=== PATIENT | female | born 1990 | race Asian ===

== ENCOUNTER 2024-10-28 00:56 | Inpatient (IN) | payer BC, SELFPAY ==
[2024-10-28] VITALS (47 sets, daily range): BP systolic 79–120; BP diastolic 44–93; PULSE 79–132; RESP 13–28; TEMP 36.4–36.8; O2SAT 90–100; BMI 29.7
--- NOTE | ~2024-10-28 | XR_ITS ---
XR chest 1V portable 10/28/2024 03:50 Indication: Overdose Procedure: AP portable chest Comparison: No prior studies for comparison. Findings: Shallow inspiration with crowding of the pulmonary vessels. There are subtle asymmetric opacification of the left lung which may relate to hypoventilatory change or airspace disease. No pleural effusion or pneumothorax. Impression: 1: Subtle opacification of left thorax which may reflect hypoventilatory change versus airspace disease which could represent pneumonia. Recommend follow-up upright PA and lateral views of the chest when the patient's condition permits. Reviewed, dictated and finalized at location O. Impression: 1: Subtle opacification of left thorax which may reflect hypoventilatory change versus airspace disease which could represent pneumonia. Recommend follow-up u pright PA and lateral views of the chest when the patient's condition permits.
--- NOTE | ~2024-10-28 | US_ITS ---
US abdomen limited INDICATION: Transaminitis PROCEDURE: Realtime right upper abdominal ultrasound. COMPARISON: No prior studies for comparison. FINDINGS: The pancreas is normal without focal mass or pancreatic ductal dilation. Liver echotexture is increased, consistent with fatty infiltration. There is normal directional flow in the portal vein. The gallbladder is normal without stones, gallbladder wall thickening or pericholecystic fluid. Common bile duct measures 4 mm. No sonographic Lerma's sign. IMPRESSION: 1: Fatty infiltration of the liver. Reviewed, dictated and finalized at location O.
--- NOTE | 2024-10-28 00:59 | ECG_ITS ---
Test Date: 2024-10-28 01:14:25 Measurements Intervals [place] Rate: 127 P: 35 [place]: 143 QRS: -19 QRSD: 82 T: 6 QT: 315 QTc: 458 Interpretive Statements SINUS TACHYCARDIA INCOMPLETE RIGHT BUNDLE BRANCH BLOCK BORDERLINE ST-T WAVE ABNORMALITY- ANT/INF LEADS BASELINE WANDER- V5 ABNORMAL ECG No previous ECG available for comparison Electronically Signed On 10-28-2024 07:36:27 CDT by Colt Mckoy D.O.
[2024-10-28 01:14] LABS: Hematocrit 41.3 % (37.0-47.0); Hemoglobin 13.5 g/dL (12.0-15.0); Immature Granulocyte Percent A 1.2 % (0-0.5); Lymphocytes Absolute Auto 3.18 K/mm3 (0.9-3.2); Mean Corpuscular HGB Conc 32.7 g/dl (32-36); Mean Corpuscular Hemoglobin 30.0 pg (26-34); Mean Corpuscular Volume 91.8 fl (80-100); Nucleated Red Blood Cells Absolute Auto 0.000 K/mm3 (0.0-0.012); Nucleated Red Blood Cells Perc 0.0 % (0.0-0.2); Platelet Count Result 236 k/mm3 (150-375); Red Blood Count 4.50 M/mm3 (4.2-5.4); White Blood Count 9.0 K/mm3 (4.5-10.0)
--- NOTE | 2024-10-28 01:17 | PC.NURSE ---
This RN spoke with poison control. Normal overdose workup suggested and observation, unclear how long of an observation period d/t peak time being 30 minutes - 6 hours, half-life 8-31 hours. The recommend against reversing with flumazenil d/t increased risk for seizures. Airway support may be needed. If UDS positive for opiates, can give narcan. Case #[id number]
[2024-10-28 01:27] LABS: Magnesium 2.3 mg/dL (1.6-2.3)
[2024-10-28 01:28] LABS: Alanine Aminotransferase 297 U/L (6-35); Albumin Level 4.7 g/dL (3.5-5.1); Alkaline Phosphatase 70 U/L (38-126); Anion Gap 13 mmol/L (4-12); Aspartate Amino Transferase 194 U/L (14-36); Bilirubin,Total 0.4 mg/dL (0.2-1.3); Blood Urea Nitrogen 12 mg/dL (7-17); Calcium 9.0 mg/dL (8.4-10.2); Carbon Dioxide 19 mmol/L (22-30); Chloride 111 mmol/L (98-107); Estimated CRCL calculation 104 ml/min; Estimated Glomerular Filt Rate > 60; Glucose 105 mg/dL (65-110); Potassium 4.6 mmol/L (3.4-5.0); Sodium 143 mmol/L (137-145); Total Protein 8.1 g/dL (6.3-8.2)
[2024-10-28 01:29] LABS: Acetaminophen < 10 ug/mL (10-30); Salicylate < 1.0 mg/dL (2-20)
[2024-10-28 01:31] LABS: BEDSIDEPREGUCG Negative (Negative)
--- NOTE | 2024-10-28 01:33 | ED.GENADULT ---
HPI - General Adult General Chief complaint: Overdose Stated complaint: overdose Time Seen by Provider: 10/28/24 01:02 History of Present Illness HPI narrative: Patient is a 34-year-old female who presents to the emergency department this evening status post an overdose. This occurred approximately 1.5 hours prior to arrival. Mother who is present in the room with the patient states that the patient took 15 Etizola pills, 0.5 mg which she takes for depression/anxiety. Patient also drank too double vodka as this evening. She is currently alert oriented x2 and normally she is A&O x4. Family members deny any past medical history of any suicidal ideations or suicide attempt and deny any previous self-harm episodes. Patient herself does appear to be drowsy, however, when asked why she took that many pills and if she was attempting to harm herself she is denying any self harm intent. Related Data Allergies Allergy/AdvReac Type Severity Reaction Status Date / Time No Known Allergies Allergy Verified 10/28/24 02:29 Review of Systems Review of Systems: Unable to obtain full review of systems secondary to patient's current altered mental status. Exam Narrative: General: Afebrile, in no acute distress, altered/drowsy. HEENT: PERRL dilated, no rhinorrhea, no post nasal drip, oropharynx clear. Neck: Trachea midline, no JVD, no lymphadenopathy. Cardiovascular: Regular rate and rhythm, no murmurs, rubs or gallops, no peripheral edema. Respiratory: Clear to auscultation bilaterally, no tachypnea, no wheezing, no rhonchi, no rubs, no respiratory distress. Abdomen: Soft, nontender, nondistended, no rebound, no guarding, no peritoneal signs. Musculoskeletal: No joint swelling or deformity, normal muscle tone. Skin: No rashes or petechia, no signs of infection. Psychiatric: Alert and oriented to person and place, appears to be under the influence of drug/alcohol, otherwise normal behavior and judgment for situation. Neurological: Alert and oriented to person, place. Follows simple commands. Moving all extremities spontaneously. No focal deficits appreciated within the limitations of the examination secondary to patient's somnolence. Course Vital Signs Vital signs: Vital Signs Temperature 97.8 F 10/28/24 01:01 Pulse Rate 126 H 10/28/24 01:01 Respiratory Rate 14 10/28/24 01:01 Blood Pressure 114/73 10/28/24 01:01 Pulse Oximetry 94 10/28/24 01:01 Oxygen Delivery Room Air 10/28/24 01:01 Temperature 97.8 F 10/28/24 01:01 Pulse Rate 106 H 10/28/24 03:51 Respiratory Rate 14 10/28/24 03:51 Blood Pressure 96/57 L 10/28/24 03:51 Pulse Oximetry 95 10/28/24 03:51 Oxygen Delivery Nasal Cannula 10/28/24 02:12 Oxygen Flow Rate 2 10/28/24 02:12 Medical Decision Making MDM Narrative Medical decision making narrative: The patient was evaluated by myself in the emergency department. History is obtained from EMS report and family members present at bedside and physical exam was performed. External medical records were reviewed at this time. IV was established and pertinent tests were ordered. Patient was administered 2 L IV fluid bolus with normal saline. Patient's O2 did drop while she is sleeping and she was placed on 2 L nasal cannula with improvement of her oxygenation currently ranging between 95-100 degrees F. patient was placed on suicide precautions/elopement precautions at this time. EKG was obtained which revealed sinus tachycardia rate of 127 beats per minute with mild QT prolongation, no evidence of acute ischemia. EKG was independently interpreted by me and is currently pending official cardiology read. Laboratory results obtained revealing transaminitis with an AST of 194 and an ALT of 297, blood alcohol level 270, otherwise unremarkable. Urinalysis unremarkable. UDS unremarkable. Imaging studies obtained included a CXR which was independently interpreted by me revealing no acute process. Chest x-ray currently pending official radiology read. Differential diagnosis considerations include overdose, intentional versus accidental, polysubstance abuse, alcohol abuse. Comorbidities impacting this visit include history of anxiety and depression. I have evaluated and discussed social determinants of health with the patient that could potentially impact subsequent diagnosis and treatment plans. On repeat assessment of the patient, reevaluation revealed that the patient is doing well and is in no acute distress. Patient symptoms have improved since she arrived to our emergency department. Repeat vital signs were all reviewed and noted to be stable. At this time, case was discussed with poison control who recommended symptomatic management, peak of this medication is 6 hours with the half-life of 31 hours. Case was discussed with the on-call metal burrer Dr. Warner at [phone] who recommended step-down admission however patient will need an ICU bed as she will need 1 on 1 sitter for suicidal ideations. Critical care time of 55 minutes, exclusive of separately performed procedures, necessary for treating or preventing eminent or life-threatening deterioration of patient's condition of polysubstance overdose, focused on patient care provided personally by me and time spent during initial evaluation, physical examination, ordering and performing treatments and interventions, ordering and reviewing laboratory studies, ordering and reviewing radiographic studies, re-evaluation of the patient's condition, evaluation of the patient's response to treatment, and discussion of patient case with admitting provider and consultants. Vital Signs Vital Signs: Vital Signs Temperature 97.8 F 10/28/24 01:01 Pulse Rate 126 H 10/28/24 01:01 Respiratory Rate 14 10/28/24 01:01 Blood Pressure 114/73 10/28/24 01:01 Pulse Oximetry 94 10/28/24 01:01 Oxygen Delivery Room Air 10/28/24 01:01 Temperature 97.8 F 10/28/24 01:01 Pulse Rate 106 H 10/28/24 03:51 Respiratory Rate 14 10/28/24 03:51 Blood Pressure 96/57 L 10/28/24 03:51 Pulse Oximetry 95 10/28/24 03:51 Oxygen Delivery Nasal Cannula 10/28/24 02:12 Oxygen Flow Rate 2 10/28/24 02:12 Lab Data 10/28/24 01:06 10/28/24 01:06 Labs: Lab Results 10/28/24 10/28/24 10/28/24 Range/Units 01:06 01:29 01:31 WBC 9.0 (4.5-10.0) K/mm3 RBC 4.50 (4.2-5.4) M/mm3 Hgb 13.5 (12.0-15.0) g/dL Hct 41.3 (37.0-47.0) % MCV 91.8 (80-100) fl MCH 30.0 (26-34) pg MCHC 32.7 (32-36) g/dl RDW 13.0 (11.5-14.5) % Plt Count 236 (150-375) k/mm3 MPV 10.1 (7.4-10.4) fl Immature Gran % (Auto) 1.2 H (0-0.5) % Neut % (Auto) 43.1 L (45.5-73.1) % Lymph % (Auto) 35.4 (18.3-44.2) % [place] % (Auto) 6.2 (2.6-8.5) % Eos % (Auto) 12.7 H (0-4.4) % Baso % (Auto) 1.4 H (0.2-1.2) % Lymph # (Auto) 3.18 (0.9-3.2) K/mm3 [place] # (Auto) 0.6 (0.1-0.6) K/mm3 Eos # (Auto) 1.1 H (0-0.3) K/mm3 Baso # (Auto) 0.1 (0.0-0.1) K/mm3 Abs Immat Gran (auto) 0.11 H (0.00-0.031) K/mm3 Absolute Neuts (auto) 3.9 (1.3-6.7) K/mm3 Absolute Nucleated RBC 0.000 (0.0-0.012) K/mm3 Nucleated RBC % 0.0 (0.0-0.2) % Sodium 143 (137-145) mmol/L Potassium 4.6 (3.4-5.0) mmol/L Chloride 111 H (98-107) mmol/L Carbon Dioxide 19 L (22-30) mmol/L Anion Gap 13 H (4-12) mmol/L BUN 12 (7-17) mg/dL Creatinine 0.62 L (0.7-1.0) mg/dL Estim Creat Clear Calc 104 ml/min Estimated GFR > 60 (59 - ) Glucose 105 (65-110) mg/dL Calcium 9.0 (8.4-10.2) mg/dL Magnesium 2.3 (1.6-2.3) mg/dL Total Bilirubin 0.4 (0.2-1.3) mg/dL AST 194 H (14-36) U/L ALT 297 H (6-35) U/L Alkaline Phosphatase 70 (38-126) U/L Total Protein 8.1 (6.3-8.2) g/dL Albumin 4.7 (3.5-5.1) g/dL TSH 0.937 (0.465-4.680) uIU/mL Urine Color Yellow (Yellow) Urine Appearance Clear (Clear) Urine pH 6.0 (5.0-9.0) Ur Specific [place] 1.011 (1.001-1.035) Urine Protein Negative (Negative) mg/dL Urine Glucose (UA) Negative (Negative) mg/dL Urine Ketones Negative (Negative) mg/dL Ur Blood (Man) Negative (Negative) Urine Nitrate Negative (Negative) Urine Bilirubin Negative (Negative) Urine Urobilinogen 0.2 (<2.0) mg/dL Leukocyte Esterase Rfl Negative (Negative) ZION/UL POC Urine HCG, Qual Negative (Negative) Salicylates < 1.0 L (2-20) mg/dL Urine Opiates Screen Negative (Negative) Urine Methadone Screen Negative (Negative) Acetaminophen < 10 L (10-30) ug/mL Ur Barbiturates Screen Negative (Negative) Ur Phencyclidine Scrn Negative (Negative) Ur Amphetamine Screen Negative (Negative) U Benzodiazepines Scrn Negative (Negative) Urine Cocaine Screen Negative (Negative) U Cannabinoids Screen Negative (Negative) Ethyl Alcohol 270 (<10) mg/dL SARS-CoV-2 RNA (RT-PCR) Negative (Negative) Critical Care Time Critical Care Time Critical Care Time: Yes Total Critical Care Time: 55 (Please refer to [facility] for attestation.) Discharge Plan Discharge Clinical Impression: Drug overdose, Alcohol intoxication Patient Disposition: Still a Patient Condition: Guarded Prognosis Patient Language: Tajik Time of Disposition: 03:46
[2024-10-28 01:40] LABS: Add Urine Microscopic? NO; Appearance Urine Clear (Clear); Glucose Urine UA Negative (Negative); Leukocyte Esterase Ur Negative LEU/UL (Negative); Nitrate Urine Negative (Negative); Specific Grav Ur 1.011 (1.001-1.035)
--- OUTSIDE RECORDS SUMMARY | 2024-10-28 01:46 | XMS_ITS | Patient Health Record ---
Author Organization [facility] [employer] Address [address] [facility] [address] [place] [address] Care Team Providers Care Spectroscopist Name Role Phone Marcia Singh Unavailable [phone] Reason For Referral No Information Medications Medication SIG (Take, Route, Frequency, Duration) Notes Start Date End Date Status COVID-19 Antibody Test Kit In Vitro *Reorder from [employer] for eRx and Interaction Alerts* 06/11/2020 Active Vraylar 1.5 mg Capsule Oral 06/11/2020 Active Social History Social History Additional Details Category Social Info Options Details Migrated Social History Migrated Social History Alcohol Intake: Heavy 06/11/2020,Tobacco Years: Current some days smoker 06/11/2020 Plan Of Treatment No Information Insurance Providers Payer Name Payer Address Payer Phone Subscriber Number Group Number Insured Name Patient Relationship to Insured Coverage Start Date Coverage End Date Medicaid-I l Medicaid [address] [address] [place] [address] [id number] ROLO ELDER Self - patient is the insured
[2024-10-28 01:49] LABS: SARS-CoV-2 RNA PCR Negative (Negative)
[2024-10-28] MEDS: SODIUM CHLORIDE 0.9% IV 1,000 ML 999 ML IV CONT ×2 (01:54→03:35)
[2024-10-28 01:58] LABS: Thyroid Stimulating Hormone 0.937 uIU/mL (0.465-4.680)
[2024-10-28 02:07] LABS: Cannabinoid Screen Urine Negative (Negative)
[2024-10-28] MEDS: SODIUM CHLORIDE 0.9% IV 1,000 ML 150 ML IV CONT (02:29)
--- NOTE | 2024-10-28 02:47 | PC.NURSE ---
Gianna from Poison center updated that the pt BP has decreased. Updated on all lab results. She recommended to continue supportive care with fluids and to add pessors if needed.
--- NOTE | 2024-10-28 03:57 | P.HP_ITS ---
H&P: HPI History of Present Illness Date/Time: 10/28/24 03:57 Chief Complaint: Overdose Narrative: This is a 34-year-old female patient with past medical history of anxiety and depression, alcohol abuse, who takes a medication called Etizola, which is a member of the Thieodiazepine family that is not purchased in the [place], but is similar in formulary to Benzodiazepines was brought to the ER last evening with complaints of an overdose. Patient's mother is at the bedside and serves as the primary source of information as patient is currently unable to provide meaningful information herself and her mother is believed to be a reliable source. According to mom Bessie took 15 of her Etizola tablets that are 0.5 mg each and did so approximately one and a half hours prior to arrival to the ER, approximately 10:00 p.m. on 10/27/2024. This medication is obtained without prescription in the country of [place] and is not available here in the [place]. Its main purpose is to help provide sleep and to help calm and patient's mother states that she keeps them at her home in case she has difficulty sleeping. Mom states that patient was at her significant other's house tonight and they did not expect her to come home until morning, however she received a phone call stating that she wanted to be picked up and brought home at approximately 9:30 p.m. last night. Mom stated that upon picking the patient up she could tell that she was obviously drunk as well as there may have been an argument between the patient and her significant other but she is uncertain what transpired. Upon arrival home mom notes that the patient ate a bowl of soup, sent down and conversed with company that was visiting and appeared to be okay and took herself to bed. Mom gives the history of 2 days ago patient was stating that she was having difficulty sleeping so she allowed her to take 1 of her Etizola medications that she keeps on hand for her own sleep aid, so she knew where the tablets were. Mom reportedly went to put the family dog in the patients room with her to sleep tonight and when she entered the room, she found pt on the floor, unconscious and the package of pills of Etizola laying next to her with 15 tablets missing. Mom states that the pt has never attempted suicide and states that approximately three years ago she was in rehab for substance abuse at which point she was diagnosed with a psychiatric disorder, but is unsure of what. She was supposed to continue taking Risperdal as outpt but notes she does not believe she has for at least 6 months, nor has she followed up with a psychiatrist. Upon arrival to the emergency room patient appeared lethargic, was alert and oriented x2 which is not at her baseline which is alert and oriented x4. It is very difficult to discern intent. Workup was performed in the emergency room upon arrival. Patient's vital signs noted to be stable with exception of being tachycardic in the 120s, and blood pressures systolic ranging 90s to low 100s over 40s to 90s. Patient hypoxic at times and is requiring supplemental oxygen at 2 L. EKG showing sinus tachycardia 127 beats per minute with a QTC of 458. CBC unremarkable, metabolic panel unremarkable, normal TSH and magnesium. Urinalysis negative for acute infection. COVID is negative and UDS unremarkable. Abnormal labs include findings of AST of 194, ALT of 297 and serum alcohol level of 270. Poison control was notified who states this medication peaks at 6:00 a.m. and has a half-life of 31 hours. Their recommendation is to provide symptom management. Chest x-ray as independently reviewed by emergency room provider negative for any acute cardiopulmonary abnormality. As we are unable to determine intent patient is going to be placed in ICU she will need 1 on 1 sitter at this time u ntil we are able to clarify intent with her normal level of alertness and degree of orientation. Emergency room provider did speak with dry transfer worker, Dr. Warner who will be consulted. Review of Systems Review of Systems: Unable to obtain ROS from pt as she is arousable to tactile stim, but does not answer any orientation questions for me, and instead drifts back off to sleep after arousal. [facility] Past Medical History Medical History (Updated 10/28/24 @ 04:30 by LUBNA Thompson) Transaminitis Substance abuse Depression Social History Social History (Updated 10/28/24 @ 04:49 by LUBNA Thompson) Smoking packs per day: 0.5 Smoking cigarettes per day: 10.0 Years smoked: 2 Smoking pack-years: 1.00 Smoking status: Former smoker Tobacco type: cigarettes Alcohol intake: current Alcohol use details: Daily Substance use: current Other substance usage details: Occasional Marijuana use Last use: Unknown Meds Home Medications and Allergies Allergies Allergy/AdvReac Type Severity Reaction Status Date / Time No Known Allergies Allergy Verified 10/28/24 02:29 Vital Signs Vital Signs - 24 hr 10/28/24 01:01 10/28/24 01:09 10/28/24 01:13 Temperature 97.8 F Pulse Rate 126 H 132 H Respiratory Rate 14 16 Blood Pressure 114/73 Pulse Oximetry 94 95 Oxygen Delivery Room Air Oxygen Flow Rate 10/28/24 01:16 10/28/24 01:16 10/28/24 01:22 Temperature Pulse Rate 129 H 124 H Respiratory Rate Blood Pressure 103/71 Pulse Oximetry 98 Oxygen Delivery Room Air Oxygen Flow Rate 10/28/24 01:23 10/28/24 01:32 10/28/24 01:42 Temperature Pulse Rate 121 H 122 H 127 H Respiratory Rate 28 H 16 Blood Pressure 97/69 L Pulse Oximetry 95 96 Oxygen Delivery Oxygen Flow Rate 10/28/24 01:43 10/28/24 01:45 10/28/24 01:47 Temperature Pulse Rate 126 H 122 H 121 H Respiratory Rate 26 H 20 22 H Blood Pressure 109/93 H 94/48 L Pulse Oximetry 96 96 95 Oxygen Delivery Oxygen Flow Rate 10/28/24 01:56 10/28/24 01:57 10/28/24 02:00 Temperature Pulse Rate 120 H 120 H 121 H Respiratory Rate 24 H 27 H Blood Pressure 100/68 Pulse Oximetry 91 94 92 Oxygen Delivery Oxygen Flow Rate 10/28/24 02:01 10/28/24 02:12 10/28/24 02:15 Temperature Pulse Rate 119 H 109 H Respiratory Rate 21 H 19 Blood Pressure 101/66 Pulse Oximetry 95 97 97 Oxygen Delivery Nasal Cannula Oxygen Flow Rate 2 10/28/24 02:16 10/28/24 02:30 10/28/24 02:31 Temperature Pulse Rate 109 H 110 H 111 H Respiratory Rate 18 19 20 Blood Pressure 88/55 L 79/51 L Pulse Oximetry 92 98 93 Oxygen Delivery Oxygen Flow Rate 10/28/24 02:33 10/28/24 02:45 10/28/24 02:46 Temperature Pulse Rate 110 H 113 H 111 H Respiratory Rate 20 21 H 20 Blood Pressure 84/72 L 97/45 L Pulse Oximetry 97 95 92 Oxygen Delivery Oxygen Flow Rate 10/28/24 03:00 10/28/24 03:01 10/28/24 03:15 Temperature Pulse Rate 113 H 112 H 112 H Respiratory Rate 22 H 19 21 H Blood Pressure 98/53 L Pulse Oximetry 95 90 95 Oxygen Delivery Oxygen Flow Rate 10/28/24 03:16 10/28/24 03:28 10/28/24 03:30 Temperature Pulse Rate 110 H 110 H 109 H Respiratory Rate 18 20 19 Blood Pressure 98/51 L 96/46 L Pulse Oximetry 91 97 97 Oxygen Delivery Oxygen Flow Rate 10/28/24 03:31 10/28/24 03:32 10/28/24 03:42 Temperature Pulse Rate 110 H 110 H 108 H Respiratory Rate 20 19 18 Blood Pressure 100/65 95/44 L Pulse Oximetry 97 97 97 Oxygen Delivery Oxygen Flow Rate 10/28/24 03:45 10/28/24 03:51 Temperature Pulse Rate 108 H 106 H Respiratory Rate 18 14 Blood Pressure 96/57 L Pulse Oximetry 96 95 Oxygen Delivery Oxygen Flow Rate Exam Const: General: no acute distress Other: Female pt lying supine at this time, arousable with tactile stimulation. No acute distress noted. She smells very strongly of alcohol. HENMT: Mouth: Yes moist mucous membranes Eyes: Sclera: sclerae normal Pupils: Equal, round and reactive pupils present Neck: Neck: supple and no JVD Resp: Effort & Inspection: normal respiratory effort (Diminished effort due to not following commands.) Auscultation: clear to auscultation bilaterally Cardio: Rate: tachycardic Rhythm: regular rhythm Heart sounds: no gallops, no murmurs and no rubs GI: GI Palp: Yes Soft to palpation and No Tenderness to palpation present (GI) Auscultation: normal bowel sounds Urinary Catheter: Urinary Catheter: patent and draining and urine clear Skin: General skin exam: normal color, no rashes or lesions noted and no erythema Wounds: no wounds Neuro: Other: Pt is currently lethargic, responds to painful tactile stimulation, attempts to verbalize, but is incoherent with response. Does acknowledge her mom at the bedside. Extrem: Other: Freely and equally MAEW Psych: Mental Status: mental status grossly abnormal H&P: Results Labs Labs: Short CBC 10/28/24 Range/Units 01:06 WBC 9.0 (4.5-10.0) K/mm3 Hgb 13.5 (12.0-15.0) g/dL Hct 41.3 (37.0-47.0) % Plt Count 236 (150-375) k/mm3 BMP 10/28/24 01:06 Sodium 143 Potassium 4.6 Chloride 111 H Carbon Dioxide 19 L BUN 12 Creatinine 0.62 L Glucose 105 Calcium 9.0 Liver Function 10/28/24 Range/Units 01:06 Total Bilirubin 0.4 (0.2-1.3) mg/dL AST 194 H (14-36) U/L ALT 297 H (6-35) U/L Alkaline Phosphatase 70 (38-126) U/L Albumin 4.7 (3.5-5.1) g/dL Urine 10/28/24 Range/Units 01:31 Urine Color Yellow (Yellow) Urine Appearance Clear (Clear) Urine pH 6.0 (5.0-9.0) Ur Specific [place] 1.011 (1.001-1.035) Urine Protein Negative (Negative) mg/dL Urine Glucose (UA) Negative (Negative) mg/dL Assessment and Plan Assessment and plan (1) Drug overdose: Code(s): T50.901A - Poisoning by unspecified drugs, medicaments and biological substances, accidental (unintentional), initial encounter Status: Acute Assessment and Plan: * Overdose on Etizola 0.5 mg x15 tablets (Obtained in [place]) * Poison control notified - Supportive care. * Half life of drugs is 31 hours and peak effect is 6 hours from ingestion * Consult Psych for evaluation once pt is alert and oriented and we are able to determine intent. * 1:1 sitter at this time. Admit to ICU * Suicide precautions * Elopement precautions * Consult Finance Professor. * Neuro checks Q2 hrs * Trend labs and VS. * Fall precautions * NS at 150 ml/hr for hydration. * Maintain MAP of 65. * Telemetry * Supplemental oxygen - wean as tolerated (2) Depression: Code(s): F32.A - Depression, unspecified Status: Chronic Assessment and Plan: * Noted hx of. * Consider psych consult when pt is alert and oriented. * Suicide precautions * Elopement precautions (3) Substance abuse: Code(s): F19.10 - Other psychoactive substance abuse, uncomplicated Status: Acute Assessment and Plan: * Acute alcohol intoxication * Trend alcohol level -currently 270 * Initiate CIWA when appropriate after down trend alcohol level. * According to mom pt has been in rehab previously and was supposed to be taking Risperdal for an unknown dx, but she knows pt has not been taking it. * Banana bag ordered then daily Folic acid and thiamine. (4) Transaminitis: Code(s): R74.01 - Elevation of levels of liver transaminase levels Status: Acute Assessment and Plan: * AST 194 and ALT 297. * Most likely due to ETOH abuse. * Obtain RUQ US. Plan Full code Admit to ICU Quality VTE Prophylaxis VTE prophylaxis: mechanical ordered Hospitalist [facility] Advance Care Plan I have confirmed that the patient's Advanced Care Plan is present, code status is documented, or surrogate decision maker is listed in patient medical record.: Yes Medication Reconciliation I have utilized all available resources to obtain, update and review the patients current medications (includes all prescriptions, OTC, herbals, cannabis, and nutritional supplements).: Yes
--- NOTE | 2024-10-28 04:43 | ADMGEN ---
This patient, Bessie Herbert, was admitted to Intensive Care Unit-4. Patient/family oriented to hospital policies and general routines including ID bracelet, bed and alarms, visiting hours, pain management, procedures, bathroom and other care routines, personal items, smoking policy, room service/diet, and visiting hours. Information on how to activate the Rapid Response Team has been discussed. Patient/Family are encouraged to report perceived risks to care and to ask questions if they do not understand what they are told or what they should do.
[2024-10-28] MEDS: THIAMINE HCL INJ 100 MG, FOLIC ACID INJ 1 MG, MAGNESIUM SULFATE INJ 1 GM, MULTIVITAMINS... IV CONT (05:19)
[2024-10-28 05:24] LABS: Hematocrit 36.7 % (37.0-47.0); Hemoglobin 11.7 g/dL (12.0-15.0); Immature Granulocyte Percent A 1.1 % (0-0.5); Lymphocytes Absolute Auto 3.84 K/mm3 (0.9-3.2); Mean Corpuscular HGB Conc 31.9 g/dl (32-36); Mean Corpuscular Hemoglobin 30.0 pg (26-34); Mean Corpuscular Volume 94.1 fl (80-100); Nucleated Red Blood Cells Absolute Auto 0.000 K/mm3 (0.0-0.012); Nucleated Red Blood Cells Perc 0.0 % (0.0-0.2); Platelet Count Result 204 k/mm3 (150-375); Red Blood Count 3.90 M/mm3 (4.2-5.4); White Blood Count 8.0 K/mm3 (4.5-10.0)
[2024-10-28 05:44] LABS: Creatine Kinase 160 U/L (30-135)
[2024-10-28 05:50] LABS: Alanine Aminotransferase 222 U/L (6-35); Albumin Level 3.4 g/dL (3.5-5.1); Alkaline Phosphatase 54 U/L (38-126); Anion Gap 10 mmol/L (4-12); Aspartate Amino Transferase 139 U/L (14-36); Bilirubin,Total 0.2 mg/dL (0.2-1.3); Blood Urea Nitrogen 8 mg/dL (7-17); Calcium 7.4 mg/dL (8.4-10.2); Carbon Dioxide 17 mmol/L (22-30); Chloride 115 mmol/L (98-107); Estimated CRCL calculation 118 ml/min; Estimated Glomerular Filt Rate > 60; Glucose 87 mg/dL (65-110); Potassium 4.3 mmol/L (3.4-5.0); Sodium 142 mmol/L (137-145); Total Protein 6.1 g/dL (6.3-8.2)
--- NOTE | 2024-10-28 11:10 | P.PNIM_ITS ---
Progress Note: A&P Assessment and Plan (1) Drug overdose: Code(s): T50.901A - Poisoning by unspecified drugs, medicaments and biological substances, accidental (unintentional), initial encounter Status: Acute Assessment and Plan: * Overdose on Etizola 0.5 mg x15 tablets (Obtained in [place]) * Poison control notified - Supportive care. * Half life of drugs is 31 hours and peak effect is 6 hours from ingestion * 1:1 sitter at this time. Admit to ICU * Suicide precautions * Elopement precautions * Consult System Support Technician. * Neuro checks Q2 hrs * Trend labs and VS. * Fall precautions * NS at 150 ml/hr for hydration. * Maintain MAP of 65. * Telemetry (2) Depression: Code(s): F32.A - Depression, unspecified Status: Chronic Assessment and Plan: * Noted hx of. * Suicide precautions * Elopement precautions * Psych consulted (3) Substance abuse: Code(s): F19.10 - Other psychoactive substance abuse, uncomplicated Status: Acute Assessment and Plan: * Acute alcohol intoxication * Trend alcohol level -currently 270 * Initiate CIWA when appropriate after down trend alcohol level. * According to mom pt has been in rehab previously and was supposed to be taking Risperdal for an unknown dx, but she knows pt has not been taking it. * Banana bag ordered then daily Folic acid and thiamine. (4) Transaminitis: Code(s): R74.01 - Elevation of levels of liver transaminase levels Status: Acute Assessment and Plan: * AST 194 --> 139, and ALT 297-->222. * Most likely due to ETOH abuse. * US liver showed fatty infiltration of the liver * monitor Plan Hypocalcemia Ca 7.4 started on PO Calcium carbonate monitor Full code DVT prophylaxis on Sq Lovenox Subjective Date/time seen: 10/28/24 11:10 Interval history: Comfortable at bedside Follow up with poison control Review of Systems Review of Systems: Unable to obtain ROS from pt as she is arousable to tactile stim, but does not answer any orientation questions for me, and instead drifts back off to sleep after arousal. Exam Const: General: no acute distress Other: Female pt lying supine at this time, arousable with tactile stimulation. No acute distress noted. She smells very strongly of alcohol. HENMT: Mouth: Yes moist mucous membranes Eyes: Sclera: sclerae normal Pupils: Equal, round and reactive pupils present Neck: Neck: supple and no JVD Resp: Effort & Inspection: normal respiratory effort (Diminished effort due to not following commands.) Auscultation: clear to auscultation bilaterally Cardio: Rate: tachycardic Rhythm: regular rhythm Heart sounds: no gallops, no murmurs and no rubs GI: Auscultation: normal bowel sounds Urinary Catheter: Urinary Catheter: patent and draining and urine clear Skin: General skin exam: normal color, no rashes or lesions noted and no erythema Wounds: no wounds Neuro: Cranial nerves: Yes Equal, round and reactive pupils present Other: Pt is currently lethargic, responds to painful tactile stimulation, attempts to verbalize, but is incoherent with response. Does acknowledge her mom at the bedside. Extrem: Other: Freely and equally MAEW Psych: Mental Status: mental status grossly abnormal Objective Data Vital Signs Vital Signs: Vital Signs - 24 hr 10/28/24 01:01 10/28/24 01:09 10/28/24 01:13 Temperature 97.8 F Pulse Rate 126 H 132 H Respiratory Rate 14 16 Blood Pressure 114/73 Pulse Oximetry 94 95 Oxygen Delivery Room Air Oxygen Flow Rate 10/28/24 01:16 10/28/24 01:16 10/28/24 01:22 Temperature Pulse Rate 129 H 124 H Respiratory Rate Blood Pressure 103/71 Pulse Oximetry 98 Oxygen Delivery Room Air Oxygen Flow Rate 10/28/24 01:23 10/28/24 01:32 10/28/24 01:42 Temperature Pulse Rate 121 H 122 H 127 H Respiratory Rate 28 H 16 Blood Pressure 97/69 L Pulse Oximetry 95 96 Oxygen Delivery Oxygen Flow Rate 10/28/24 01:43 10/28/24 01:45 10/28/24 01:47 Temperature Pulse Rate 126 H 122 H 121 H Respiratory Rate 26 H 20 22 H Blood Pressure 109/93 H 94/48 L Pulse Oximetry 96 96 95 Oxygen Delivery Oxygen Flow Rate 10/28/24 01:56 10/28/24 01:57 10/28/24 02:00 Temperature Pulse Rate 120 H 120 H 121 H Respiratory Rate 24 H 27 H Blood Pressure 100/68 Pulse Oximetry 91 94 92 Oxygen Delivery Oxygen Flow Rate 10/28/24 02:01 10/28/24 02:12 10/28/24 02:15 Temperature Pulse Rate 119 H 109 H Respiratory Rate 21 H 19 Blood Pressure 101/66 Pulse Oximetry 95 97 97 Oxygen Delivery Nasal Cannula Oxygen Flow Rate 2 10/28/24 02:16 10/28/24 02:30 10/28/24 02:31 Temperature Pulse Rate 109 H 110 H 111 H Respiratory Rate 18 19 20 Blood Pressure 88/55 L 79/51 L Pulse Oximetry 92 98 93 Oxygen Delivery Oxygen Flow Rate 10/28/24 02:33 10/28/24 02:45 10/28/24 02:46 Temperature Pulse Rate 110 H 113 H 111 H Respiratory Rate 20 21 H 20 Blood Pressure 84/72 L 97/45 L Pulse Oximetry 97 95 92 Oxygen Delivery Oxygen Flow Rate 10/28/24 03:00 10/28/24 03:01 10/28/24 03:15 Temperature Pulse Rate 113 H 112 H 112 H Respiratory Rate 22 H 19 21 H Blood Pressure 98/53 L Pulse Oximetry 95 90 95 Oxygen Delivery Oxygen Flow Rate 10/28/24 03:16 10/28/24 03:28 10/28/24 03:30 Temperature Pulse Rate 110 H 110 H 109 H Respiratory Rate 18 20 19 Blood Pressure 98/51 L 96/46 L Pulse Oximetry 91 97 97 Oxygen Delivery Oxygen Flow Rate 10/28/24 03:31 10/28/24 03:32 10/28/24 03:42 Temperature Pulse Rate 110 H 110 H 108 H Respiratory Rate 20 19 18 Blood Pressure 100/65 95/44 L Pulse Oximetry 97 97 97 Oxygen Delivery Oxygen Flow Rate 10/28/24 03:45 10/28/24 03:51 10/28/24 04:30 Temperature 97.6 F Pulse Rate 108 H 106 H 106 H Respiratory Rate 18 14 13 Blood Pressure 96/57 L 94/64 L Pulse Oximetry 96 95 100 Oxygen Delivery Oxygen Flow Rate 10/28/24 04:30 10/28/24 06:00 10/28/24 07:41 Temperature 97.6 F Pulse Rate 94 84 Respiratory Rate 14 Blood Pressure 118/74 Pulse Oximetry 97 Oxygen Delivery Room Air Oxygen Flow Rate 10/28/24 08:00 10/28/24 10:00 Temperature Pulse Rate 89 90 Respiratory Rate Blood Pressure Pulse Oximetry Oxygen Delivery Oxygen Flow Rate Intake/Output Intake/Output: Intake & Output 10/25/24 10/26/24 10/27/24 08/24/25 23:59 23:59 23:59 23:59 Intake Total 3000 Output Total 600 Balance 2400 Meds/Results Medications: Active Medications Generic Name Dose Route Start Last Admin Trade Name Ish PRN Reason Stop Dose Admin Folic Acid 1 mg 10/29/24 09:00 Folic Acid 1 Mg/0.2 Ml Inj IV PUSH QAM [facility] Thiamine HCl 100 mg/ Folic 1,013.2 mls @ 100 mls/hr 10/28/24 04:37 10/28/24 05:19 Acid 1 mg/ Magnesium Sulfate 1 IV CONT 10/28/24 14:44 100 mls/hr gm/ Multivitamins 5 ml/ .[id number] ONE Administration Multivitamins 5 ml/ Dextrose/ Lactated Ringer's Thiamine HCl 100 mg 10/29/24 09:00 Thiamine Hcl 200 Mg/2 Ml Vial IV PUSH QAM [facility] Radiology Results: ITS Impressions Chest X-Ray 10/28/24 07:39 Impression: 1: Subtle opacification of left thorax which may reflect hypoventilatory change versus airspace disease which could represent pneumonia. Recommend follow-up upright PA and lateral views of the chest when the patient's condition permits. Abdomen Ultrasound 10/28/24 09:05 IMPRESSION: 1: Fatty infiltration of the liver. Labs Labs: Laboratory Results - last 24 hr 10/28/24 10/28/24 10/28/24 01:06 01:29 01:31 WBC 9.0 RBC 4.50 Hgb 13.5 Hct 41.3 MCV 91.8 MCH 30.0 MCHC 32.7 RDW 13.0 Plt Count 236 MPV 10.1 Immature Gran % (Auto) 1.2 H Neut % (Auto) 43.1 L Lymph % (Auto) 35.4 [place] % (Auto) 6.2 Eos % (Auto) 12.7 H Baso % (Auto) 1.4 H Lymph # (Auto) 3.18 [place] # (Auto) 0.6 Eos # (Auto) 1.1 H Baso # (Auto) 0.1 Abs Immat Gran (auto) 0.11 H Absolute Neuts (auto) 3.9 Absolute Nucleated RBC 0.000 Nucleated RBC % 0.0 Sodium 143 Potassium 4.6 Chloride 111 H Carbon Dioxide 19 L Anion Gap 13 H BUN 12 Creatinine 0.62 L Estim Creat Clear Calc 104 Estimated GFR > 60 Glucose 105 Calcium 9.0 Magnesium 2.3 Total Bilirubin 0.4 AST 194 H ALT 297 H Alkaline Phosphatase 70 Total Creatine Kinase Total Protein 8.1 Albumin 4.7 TSH 0.937 Urine Color Yellow Urine Appearance Clear Urine pH 6.0 Ur Specific [place] 1.011 Urine Protein Negative Urine Glucose (UA) Negative Urine Ketones Negative Ur Blood (Man) Negative Urine Nitrate Negative Urine Bilirubin Negative Urine Urobilinogen 0.2 Leukocyte Esterase Rfl Negative POC Urine HCG, Qual Negative Salicylates < 1.0 L Urine Opiates Screen Negative Urine Methadone Screen Negative Acetaminophen < 10 L Ur Barbiturates Screen Negative Ur Phencyclidine Scrn Negative Ur Amphetamine Screen Negative U Benzodiazepines Scrn Negative Urine Cocaine Screen Negative U Cannabinoids Screen Negative Ethyl Alcohol 270 SARS-CoV-2 RNA (RT-PCR) Negative 10/28/24 05:19 WBC 8.0 RBC 3.90 L Hgb 11.7 L Hct 36.7 L MCV 94.1 MCH 30.0 MCHC 31.9 L RDW 13.1 Plt Count 204 MPV 9.8 Immature Gran % (Auto) 1.1 H Neut % (Auto) 34.5 L Lymph % (Auto) 47.9 H [place] % (Auto) 5.7 Eos % (Auto) 9.7 H Baso % (Auto) 1.1 Lymph # (Auto) 3.84 H [place] # (Auto) 0.5 Eos # (Auto) 0.8 H Baso # (Auto) 0.1 Abs Immat Gran (auto) 0.09 H Absolute Neuts (auto) 2.8 Absolute Nucleated RBC 0.000 Nucleated RBC % 0.0 Sodium 142 Potassium 4.3 Chloride 115 H Carbon Dioxide 17 L Anion Gap 10 BUN 8 Creatinine 0.53 L Estim Creat Clear Calc 118 Estimated GFR > 60 Glucose 87 Calcium 7.4 L Magnesium Total Bilirubin 0.2 AST 139 H ALT 222 H Alkaline Phosphatase 54 Total Creatine Kinase 160 H Total Protein 6.1 L Albumin 3.4 L TSH Urine Color Urine Appearance Urine pH Ur Specific [place] Urine Protein Urine Glucose (UA) Urine Ketones Ur Blood (Man) Urine Nitrate Urine Bilirubin Urine Urobilinogen Leukocyte Esterase Rfl POC Urine HCG, Qual Salicylates Urine Opiates Screen Urine Methadone Screen Acetaminophen Ur Barbiturates Screen Ur Phencyclidine Scrn Ur Amphetamine Screen U Benzodiazepines Scrn Urine Cocaine Screen U Cannabinoids Screen Ethyl Alcohol 137 SARS-CoV-2 RNA (RT-PCR) Quality VTE Prophylaxis VTE prophylaxis: mechanical ordered
[2024-10-28] MEDS: CALCIUM CARBONATE (OSCAL) 500 MG TABLET PO ×2 (12:00→16:12)
[2024-10-29] VITALS (12 sets, daily range): BP systolic 112–134; BP diastolic 83–109; PULSE 57–101; RESP 12–21; TEMP 36.4–36.9; O2SAT 96–100
[2024-10-29 04:07] LABS: Hematocrit 39.6 % (37.0-47.0); Hemoglobin 12.8 g/dL (12.0-15.0); Immature Granulocyte Percent A 1.1 % (0-0.5); Lymphocytes Absolute Auto 3.49 K/mm3 (0.9-3.2); Mean Corpuscular HGB Conc 32.3 g/dl (32-36); Mean Corpuscular Hemoglobin 30.1 pg (26-34); Mean Corpuscular Volume 93.2 fl (80-100); Nucleated Red Blood Cells Absolute Auto 0.000 K/mm3 (0.0-0.012); Nucleated Red Blood Cells Perc 0.0 % (0.0-0.2); Platelet Count Result 217 k/mm3 (150-375); Red Blood Count 4.25 M/mm3 (4.2-5.4); White Blood Count 8.8 K/mm3 (4.5-10.0)
[2024-10-29 04:38] LABS: Alanine Aminotransferase 187 U/L (6-35); Albumin Level 3.4 g/dL (3.5-5.1); Alkaline Phosphatase 64 U/L (38-126); Anion Gap 6 mmol/L (4-12); Aspartate Amino Transferase 90 U/L (14-36); Bilirubin,Total 0.4 mg/dL (0.2-1.3); Blood Urea Nitrogen 10 mg/dL (7-17); Calcium 8.8 mg/dL (8.4-10.2); Carbon Dioxide 21 mmol/L (22-30); Chloride 108 mmol/L (98-107); Creatine Kinase 104 U/L (30-135); Estimated CRCL calculation 106 ml/min; Estimated Glomerular Filt Rate > 60; Glucose 95 mg/dL (65-110); Lipase 68 U/L (23-300); Magnesium 2.0 mg/dL (1.6-2.3); Potassium 3.9 mmol/L (3.4-5.0); Sodium 135 mmol/L (137-145); Total Protein 6.2 g/dL (6.3-8.2)
[2024-10-29 04:50] LABS: INR 1.0; Partial Thromboplastin Time 25.1 Seconds (22.3-36.8); Prothrombin Time 13.5 Seconds (11.1-14.7)
--- NOTE | 2024-10-29 07:05 | WPDCNPSYCH ---
Assessment and Plan Assessment and plan (1) Major depressive disorder, recurrent severe without psychotic features: Code(s): F33.2 - Major depressive disorder, recurrent severe without psychotic features Status: Acute (2) Alcohol use disorder: Code(s): F10.90 - Alcohol use, unspecified, uncomplicated Status: Acute (3) Suicide attempt: Code(s): T14.91XA - Suicide attempt, initial encounter Status: Acute Plan Patient s/p suicide attempt, admits to longstanding history of depression and alcohol use disorder which has gone untreated for some time. Discussed with patient she will likely benefit from inpatient behavioral health admission given the context of suicidal behaviors and continued depression, she is agreeable to plan for inpatient admission. Recommendations: -Recommend admission to inpatient behavioral health facility once medically cleared due to suicide attempt, ongoing depression. Patient is voluntary at this time. -Recommend initiation of antidepressant- sertraline 25mg daily for depression. -Continue to monitor for alcohol withdrawal, none at this time, initiate CIWA if necessary. HPI Data of Consult Date/Time: 10/29/24 07:05 Requesting Physician: Amrit Neumann MD Primary Care Provider: MANUFACTURING TEST TECHNICIAN PHYSICIAN Consult Narrative Narrative: Bessie Herbert is a 34 year old female with known psychiatric history of depression, alcohol use disorder. She was admitted on 10/28/24 following an apparent suicide attempt on Etizolam (thienodiazepine derivative), which is available over the counter in [place], not available in [place]. She reportedly took fifteen 0.5mg tablets, mother found her down and she was subsequently brought to the ED. Additionally, her alcohol level on admission was 270, UDT otherwise negative. Patient is interviewed at bedside this morning, groggy although calm and cooperative. She admits to taking Etizolam along with a shot of liquor with intent to end her life. Reports she had spent the prior day with her boyfriend, which they had been consuming alcohol throughout the day. They had been arguing so she returned home. Reports feeling depressed for about 10 years, which she has not consistently sought out treatment for. She reportedly has been prescribed risperidone in the past although was not compliant. She continues to endorse feeling depressed however is denying active suicidal ideation. When asked how she feels about being alive following the suicide attempt, states indifferent. She does admit to heavy alcohol use, which has overall slowed down per patient since being with her boyfriend. Recently, she has been drinking about 3-4 days a week and drinks about 4 seltzers each episode. Denies current withdrawal symptoms. She lives primarily at home with her parents, but often stays with her boyfriend. She is currently employed at a [employer]. Denies history of previous suicide attempts priot to this. Denies history of psychosis, clarisa. Review of Systems Constitutional: Comments: depressed mood Psychiatric: Psychiatric: Reports depression and Reports hopelessness [facility] Past Medical History Medical History (Updated 10/29/24 @ 07:19 by Rica Michaels, UX CONSULTANT) Transaminitis Substance abuse Depression Social History Social History (Updated 10/28/24 @ 04:49 by CARLOS ThompsonN-C) Smoking packs per day: 0.5 Smoking cigarettes per day: 10.0 Years smoked: 2 Smoking pack-years: 1.00 Smoking status: Former smoker Tobacco type: cigarettes Alcohol intake: current Alcohol use details: Daily Substance use: current Other substance usage details: Occasional Marijuana use Last use: Unknown Lack of Transportation: No Lack of Food: Never True Current Housing: I Have Housing Concerned About Future Housing: No Difficulty Paying Gas/Electric Bills: No Difficulty Paying for Meds: No Currently Unemployed: No Education: Don't Know Difficulty w/ Childcare or Family Care: No Spiritual care concerns: No Meds Home Medications and Allergies Home Medications ?Medication ?Instructions ?Recorded ?Confirmed ?Type No Home Medications 10/28/24 10/28/24 History Allergies Allergy/AdvReac Type Severity Reaction Status Date / Time No Known Allergies Allergy Verified 10/28/24 02:29 Vital Signs Vital Signs - 24 hr 10/28/24 07:41 10/28/24 08:00 10/28/24 10:00 Temperature 97.6 F Pulse Rate 84 89 90 Respiratory Rate 14 Blood Pressure 118/74 Pulse Oximetry 97 Oxygen Delivery Fraction of Inspired Oxygen 10/28/24 11:46 10/28/24 12:00 10/28/24 14:00 Temperature 98.3 F Pulse Rate 79 90 109 H Respiratory Rate 13 Blood Pressure 113/84 Pulse Oximetry 97 Oxygen Delivery Fraction of Inspired Oxygen 10/28/24 16:00 10/28/24 16:00 10/28/24 18:00 Temperature 97.6 F Pulse Rate 94 97 111 H Respiratory Rate 18 Blood Pressure 102/69 Pulse Oximetry 99 Oxygen Delivery Fraction of Inspired Oxygen 10/28/24 20:00 10/28/24 20:00 10/28/24 20:00 Temperature 98.3 F Pulse Rate 89 80 Respiratory Rate 18 Blood Pressure 120/78 Pulse Oximetry 100 Oxygen Delivery Room Air Fraction of Inspired Oxygen 10/28/24 20:30 10/28/24 22:00 10/29/24 00:00 Temperature 98.4 F Pulse Rate 86 80 69 Respiratory Rate 20 15 Blood Pressure 114/83 Pulse Oximetry 95 100 Oxygen Delivery Room Air Fraction of Inspired Oxygen 21 10/29/24 00:00 10/29/24 00:00 10/29/24 02:00 Temperature Pulse Rate 73 69 Respiratory Rate Blood Pressure Pulse Oximetry Oxygen Delivery Room Air Fraction of Inspired Oxygen 10/29/24 04:00 10/29/24 04:00 10/29/24 04:00 Temperature 98.1 F Pulse Rate 73 73 Respiratory Rate 15 Blood Pressure 121/96 H Pulse Oximetry 97 Oxygen Delivery Room Air Fraction of Inspired Oxygen 10/29/24 06:00 Temperature Pulse Rate 60 Respiratory Rate Blood Pressure Pulse Oximetry Oxygen Delivery Fraction of Inspired Oxygen Exam Psych: Appearance: grossly normal Mental Status: mental status grossly normal Speech and movement: Other speech and movement exam findings present (Psych) (soft) Affect: Sad affect present and Indifferent affect present Attitude: cooperative Thought process: Normal thought process present Thought content: Yes Depressive thoughts present Insight: Fair insight present (Psych) Judgement: Fair judgement present (Psych) Results Labs 10/29/24 03:58 10/29/24 03:58 Labs: Short CBC 10/29/24 Range/Units 03:58 WBC 8.8 (4.5-10.0) K/mm3 Hgb 12.8 (12.0-15.0) g/dL Hct 39.6 (37.0-47.0) % Plt Count 217 (150-375) k/mm3 BMP 10/29/24 03:58 Sodium 135 L Potassium 3.9 Chloride 108 H Carbon Dioxide 21 L BUN 10 Creatinine 0.60 L Glucose 95 Calcium 8.8 Cardiac Enzymes 10/29/24 Range/Units 03:58 Total Creatine Kinase 104 (30-135) U/L Liver Function 10/29/24 Range/Units 03:58 Total Bilirubin 0.4 (0.2-1.3) mg/dL AST 90 H (14-36) U/L ALT 187 H (6-35) U/L Alkaline Phosphatase 64 (38-126) U/L Albumin 3.4 L (3.5-5.1) g/dL
[2024-10-29] MEDS: CALCIUM CARBONATE (OSCAL) 500 MG TABLET PO ×2 (09:00→17:28)
[2024-10-29] MEDS: ENOXAPARIN 40 MG/0.4 ML SYRINGE SUB-Q (10:00)
[2024-10-29] MEDS: FOLIC ACID 1 MG/0.2 ML INJ IV PUSH (10:00)
[2024-10-29] MEDS: THIAMINE HCL 200 MG/2 ML VIAL 100 MG IV PUSH (10:00)
--- NOTE | 2024-10-29 14:48 | P.PNIM_ITS ---
Progress Note: A&P Assessment and Plan (1) Drug overdose: Code(s): T50.901A - Poisoning by unspecified drugs, medicaments and biological substances, accidental (unintentional), initial encounter Status: Acute Assessment and Plan: * Overdose on Etizola 0.5 mg x15 tablets (Obtained in [place]) * Poison control notified - Supportive care. * Half life of drugs is 31 hours and peak effect is 6 hours from ingestion * 1:1 sitter at this time. Admit to ICU * Suicide precautions * Elopement precautions * Trend labs and VS. * Fall precautions * Maintain MAP of 65. * Cleared by poison control * Patient is medically stable for discharge (2) Depression: Code(s): F32.A - Depression, unspecified Status: Chronic Assessment and Plan: * Noted hx of. * Suicide precautions * Elopement precautions * Start Sertraline 25mg daily per psych (3) Substance abuse: Code(s): F19.10 - Other psychoactive substance abuse, uncomplicated Status: Acute Assessment and Plan: * Acute alcohol intoxication * Trend alcohol level -270 on admission * Initiate CIWA when appropriate after down trend alcohol level. * Banana bag ordered then daily Folic acid and thiamine. * Appreciate psych input (4) Transaminitis: Code(s): R74.01 - Elevation of levels of liver transaminase levels Status: Acute Assessment and Plan: * AST 194 --> 90, and ALT 297-->187. * Most likely due to ETOH abuse. * US liver showed fatty infiltration of the liver * monitor Plan Hypocalcemia resolved monitor Patient medically stable for discharge to inpatient psych Full code DVT prophylaxis on Sq Lovenox Subjective Date/time seen: 10/29/24 14:48 Interval history: Comfortable at bedside Cleared by poison control and awaiting crisis team eval Review of Systems Review of Systems: Unable to obtain ROS from pt as she is arousable to tactile stim, but does not answer any orientation questions for me, and instead drifts back off to sleep after arousal. Exam Const: General: no acute distress Other: Female pt lying supine at this time, arousable with tactile stimulation. No acute distress noted. She smells very strongly of alcohol. HENMT: Mouth: Yes moist mucous membranes Eyes: Sclera: sclerae normal Pupils: Equal, round and reactive pupils present Neck: Neck: supple and no JVD Resp: Effort & Inspection: normal respiratory effort (Diminished effort due to not following commands.) Auscultation: clear to auscultation bilaterally Cardio: Rate: tachycardic Rhythm: regular rhythm Heart sounds: no gallops, no murmurs and no rubs GI: Auscultation: normal bowel sounds Urinary Catheter: Urinary Catheter: patent and draining and urine clear Skin: General skin exam: normal color, no rashes or lesions noted and no erythema Wounds: no wounds Neuro: Cranial nerves: Yes Equal, round and reactive pupils present Other: Pt is currently lethargic, responds to painful tactile stimulation, attempts to verbalize, but is incoherent with response. Does acknowledge her mom at the bedside. Extrem: Other: Freely and equally MAEW Psych: Mental Status: mental status grossly abnormal Objective Data Vital Signs Vital Signs: Vital Signs - 24 hr 10/28/24 16:00 10/28/24 16:00 10/28/24 18:00 Temperature 97.6 F Pulse Rate 94 97 111 H Respiratory Rate 18 Blood Pressure 102/69 Pulse Oximetry 99 Oxygen Delivery Fraction of Inspired Oxygen 10/28/24 20:00 10/28/24 20:00 10/28/24 20:00 Temperature 98.3 F Pulse Rate 89 80 Respiratory Rate 18 Blood Pressure 120/78 Pulse Oximetry 100 Oxygen Delivery Room Air Fraction of Inspired Oxygen 10/28/24 20:30 10/28/24 22:00 10/29/24 00:00 Temperature 98.4 F Pulse Rate 86 80 69 Respiratory Rate 20 15 Blood Pressure 114/83 Pulse Oximetry 95 100 Oxygen Delivery Room Air Fraction of Inspired Oxygen 21 10/29/24 00:00 10/29/24 00:00 10/29/24 02:00 Temperature Pulse Rate 73 69 Respiratory Rate Blood Pressure Pulse Oximetry Oxygen Delivery Room Air Fraction of Inspired Oxygen 10/29/24 04:00 10/29/24 04:00 10/29/24 04:00 Temperature 98.1 F Pulse Rate 73 73 Respiratory Rate 15 Blood Pressure 121/96 H Pulse Oximetry 97 Oxygen Delivery Room Air Fraction of Inspired Oxygen 10/29/24 06:00 10/29/24 08:00 10/29/24 08:00 Temperature 97.6 F Pulse Rate 60 63 62 Respiratory Rate 12 Blood Pressure 115/89 Pulse Oximetry 98 Oxygen Delivery Fraction of Inspired Oxygen 10/29/24 10:00 10/29/24 11:13 10/29/24 12:00 Temperature 97.8 F Pulse Rate 101 H 78 71 Respiratory Rate 21 H Blood Pressure 112/91 H Pulse Oximetry 97 Oxygen Delivery Fraction of Inspired Oxygen Intake/Output Intake/Output: Intake & Output 10/26/24 10/27/24 10/28/24 10/29/24 23:59 23:59 23:59 23:59 Intake Total 3240 220 Output Total 1999 Balance 1240 220 Meds/Results Medications: Active Medications Generic Name Dose Route Start Last Admin Trade Name Freq PRN Reason Stop Dose Admin Calcium Carbonate 500 mg 10/28/24 11:15 10/29/24 09:00 Calcium Carbonate (Oscal) 500 Mg Tablet PO 500 mg BIDWM DELGADO Administration Enoxaparin Sodium 40 mg 10/29/24 09:00 10/29/24 10:00 Enoxaparin 40 Mg/0.4 Ml Syringe SUB-Q 40 mg DAILY DELGADO Administration Folic Acid 1 mg 10/29/24 09:00 10/29/24 10:00 Folic Acid 1 Mg/0.2 Ml Inj IV PUSH 1 mg QAM DELGADO Administration Sertraline HCl 25 mg 10/29/24 13:50 Sertraline Hcl 25 Mg Tablet PO QAM DELGADO Thiamine HCl 100 mg 10/29/24 09:00 10/29/24 10:00 Thiamine Hcl 200 Mg/2 Ml Vial IV PUSH 100 mg QAM DELGADO Administration Radiology Results: ITS Impressions Chest X-Ray 10/28/24 07:39 Impression: 1: Subtle opacification of left thorax which may reflect hypoventilatory change versus airspace disease which could represent pneumonia. Recommend follow-up upright PA and lateral views of the chest when the patient's condition permits. Abdomen Ultrasound 10/28/24 09:05 IMPRESSION: 1: Fatty infiltration of the liver. Labs Labs: Laboratory Results - last 24 hr 10/29/24 10/29/24 03:58 14:03 WBC 8.8 RBC 4.25 Hgb 12.8 Hct 39.6 MCV 93.2 MCH 30.1 MCHC 32.3 RDW 13.0 Plt Count 217 MPV 9.8 Immature Gran % (Auto) 1.1 H Neut % (Auto) 42.4 L Lymph % (Auto) 39.6 [place] % (Auto) 6.8 Eos % (Auto) 9.1 H Baso % (Auto) 1.0 Lymph # (Auto) 3.49 H [place] # (Auto) 0.6 Eos # (Auto) 0.8 H Baso # (Auto) 0.1 Abs Immat Gran (auto) 0.10 H Absolute Neuts (auto) 3.7 Absolute Nucleated RBC 0.000 Nucleated RBC % 0.0 PT 13.5 INR 1.0 APTT 25.1 Sodium 135 L Potassium 3.9 Chloride 108 H Carbon Dioxide 21 L Anion Gap 6 BUN 10 Creatinine 0.60 L Estim Creat Clear Calc 106 Estimated GFR > 60 Glucose 95 Calcium 8.8 Magnesium 2.0 Total Bilirubin 0.4 AST 90 H ALT 187 H Alkaline Phosphatase 64 Total Creatine Kinase 104 Total Protein 6.2 L Albumin 3.4 L Lipase 68 Ethyl Alcohol < 10 Quality VTE Prophylaxis VTE prophylaxis: mechanical ordered
[2024-10-29] MEDS: SERTRALINE HCL 25 MG TABLET PO (14:55)
[2024-10-30 01:37] VITALS: BP 122/79; PULSE 55; RESP 16; TEMP 36.7; O2SAT 100
--- NOTE | 2024-10-30 03:38 | PC.NURSE ---
This RN spoke to crisis about patient placement. Notified them that we have not received any updates from facilities.
--- NOTE | 2024-10-30 04:07 | PC.NURSE ---
This RN spoke with Saira from [facility]. This RN gave patient's insurance information to Saira. Saira stated the accepting provider is Dr. Rangel at [facility] and to expect ride arrangements to be made for the morning. This RN notified the charge master specialist.
--- NOTE | 2024-10-30 04:58 | PC.NURSE ---
[facility] returned phone call, unable for patient transport until 10/31/24 at 10am. Trip # [phone]
--- NOTE | 2024-10-30 05:05 | PC.NURSE ---
[facility] services notified regarding patient transport, [facility] to call back with potential availability
[2024-10-30 05:23] VITALS: BP 103/70; PULSE 67; RESP 15; TEMP 36.9; O2SAT 99
--- NOTE | 2024-10-30 06:53 | PC.NURSE ---
Patient requested RN to call mother to inform her of the patient getting accepted at [facility]. No answer, message left.
[2024-10-30] MEDS: FOLIC ACID 1 MG/0.2 ML INJ IV PUSH (08:01)
[2024-10-30] MEDS: ENOXAPARIN 40 MG/0.4 ML SYRINGE SUB-Q (08:01)
[2024-10-30] MEDS: CALCIUM CARBONATE (OSCAL) 500 MG TABLET PO (08:01)
[2024-10-30] MEDS: THIAMINE HCL 200 MG/2 ML VIAL 100 MG IV PUSH (08:01)
[2024-10-30] MEDS: SERTRALINE HCL 25 MG TABLET PO (08:01)
--- NOTE | 2024-10-30 08:41 | PC.NURSE ---
Report given to Conchita the admitting RN.
--- NOTE | 2024-10-30 08:48 | PC.NURSE ---
Report given to Conchita the admitting RN at the [facility].
--- NOTE | 2024-10-30 17:20 | P.DS_ITS ---
DS: Admitting Diagnosis Discharge Date 10/30/24 Admitting Diagnosis Overdose DS: Discharge Diagnosis Discharge Diagnosis (1) Suicide attempt: Code(s): T14.91XA - Suicide attempt, initial encounter Status: Acute (2) Major depressive disorder, recurrent severe without psychotic features: Code(s): F33.2 - Major depressive disorder, recurrent severe without psychotic features Status: Acute (3) Alcohol intoxication: Code(s): F10.929 - Alcohol use, unspecified with intoxication, unspecified Status: Acute DS: Summary Hospital Course Hospital Course: Reason for Admission Acute intentional overdose on Etizolam (15 x 0.5 mg tablets, obtained in [facility]) in the context of alcohol intoxication, with a background of major depressive disorder and alcohol use disorder. History of Present Illness 34-year-old female with a history of major depressive disorder and alcohol use disorder presented after an intentional overdose on Etizolam, a thienodiazepine derivative not available in the [place]. She ingested 15 tablets (0.5 mg each) with alcohol, was found unresponsive by her mother, and brought to the ED. On arrival, she was lethargic, tachycardic, and hypoxic, requiring supplemental oxygen. She was admitted to the ICU for close monitoring, suicide precautions, and supportive care. Hospital Course Initial Assessment: * Vitals:?Tachycardia (HR 120s), BP 90s/40s?90s, hypoxic (2L O2). * Labs: * AST 194 ? 90, ALT 297 ? 187 (improved during stay) * Alcohol level 270 on admission, trended down * Hypocalcemia (resolved) * CBC, metabolic panel, TSH, magnesium, urinalysis unremarkable * Imaging: * CXR: No acute cardiopulmonary abnormality * RUQ US: Fatty infiltration of the liver * EKG:?Sinus tachycardia, QTC 458 * Poison Control:?Notified; recommended supportive care. Etizolam peak effect at 6 hours, half-life 31 hours. ICU Management: * 1:1 sitter, suicide and elopement precautions * Supportive care, IV fluids, telemetry, neuro checks * Banana bag, then daily folic acid and thiamine * CIWA protocol initiated as alcohol level trended down * Monitored for withdrawal and complications * Cleared by poison control; medically stable for discharge Psychiatric Assessment: * Patient admitted to intentional overdose with suicidal intent, in the context of longstanding depression and recent alcohol use. * Endorsed chronic depressive symptoms, no prior suicide attempts, no history of psychosis or clarisa. * Denied current suicidal ideation but described feeling indifferent about surviving. * Agreed to voluntary inpatient behavioral health admission for further stabilization and treatment. * Sertraline 25 mg daily initiated for depression. Assessment and Plan 1. Drug Overdose (T50.901A): * Etizolam overdose, intentional, with alcohol co-ingestion. * Supportive care, ICU monitoring, suicide precautions. * Medically stable for psychiatric transfer. 2. Major Depressive Disorder, Recurrent, Severe, Without Psychotic Features (F33.2): * Longstanding, untreated depression. * Initiated sertraline 25 mg daily. * Voluntary for inpatient behavioral health admission. 3. Alcohol Use Disorder (F10.90) / Substance Abuse (F19.10): * Acute intoxication on admission, no withdrawal symptoms during stay. * CIWA protocol available if needed. * Banana bag, folic acid, thiamine. 4. Suicide Attempt (T14.91XA): * Intentional overdose, first suicide attempt. * Suicide and elopement precautions maintained throughout stay. * Psychiatry recommends inpatient behavioral health admission. 5. Transaminitis (R74.01): * AST/ALT elevated, improved during stay. * Likely secondary to alcohol use. * RUQ US: Fatty liver. * Monitor LFTs as outpatient. 6. Hypocalcemia: * Resolved during admission. Medications at Discharge * Sertraline 25 mg daily (new start) * Folic acid, thiamine * Other home medications as appropriate Disposition transferred to inpatient psych Follow-Up * Inpatient behavioral health team * Outpatient primary care and psychiatry after discharge from behavioral health Time Spent with Patient Time attestation: Total time spent providing and/or coordinating discharge services: Discharge Plan Discharge Attending physician on discharge: Nyla Chaney Consulting providers: Red Anders; Colt Mckoy; Rica Michaels; Debbie Kennedy; Dann Moctezuma Discharging Clinician: Nyla Chaney Anticipated Discharge Date/Time: 10/30/24 17:19 Patient Disposition: Psychiatric Hosp Activity: as tolerated Diet: as tolerated Patient Instructions: Depression (GEN), Alcohol Intoxication (DC), Abuse of Alcohol (DC), Suicide Prevention (GEN) Patient Language: Wolof Follow-up/Referrals: Aaron Castellanos MD [Physician, Psychiatry] Referral Note: F/u with Psych PHYSICIAN,SENIOR MAINTENANCE MACHINIST [Primary Care Provider, Internal Medicine] Referral Note: F/u with PCP in 3-5 days Red Anders MD [Physician, Family Practice] Referral Note: F/u with PCP in 3-5 days Discharge Orders: Discharge Order (Routine); Ordered 10/30/24 Ordered By: Nyla Chaney Discharge Medications: New sertraline 25 mg tablet 25 mg PO DAILY Qty: 30 1RF thiamine HCl (vitamin B1) 100 mg tablet 100 mg PO DAILY 30 Days Qty: 30 0RF folic acid 1 mg tablet 1 mg PO DAILY 30 Days Qty: 30 0RF Date of admission: 10/28/24 03:58 Primary Care Provider: PHYSICIAN,SENIOR MAINTENANCE MACHINIST Admitting Provider: Amrit Neumann Attending physician on admission: Nyla Chaney Condition: Guarded Prognosis
--- NOTE | 2024-10-30 17:20 | PM.DS ---
DS: Admitting Diagnosis Discharge Date 10/30/24 Admitting Diagnosis Overdose DS: Discharge Diagnosis Discharge Diagnosis (1) Suicide attempt: Code(s): T14.91XA - Suicide attempt, initial encounter Status: Acute (2) Major depressive disorder, recurrent severe without psychotic features: Code(s): F33.2 - Major depressive disorder, recurrent severe without psychotic features Status: Acute (3) Alcohol intoxication: Code(s): F10.929 - Alcohol use, unspecified with intoxication, unspecified Status: Acute DS: Summary Hospital Course Hospital Course: Reason for Admission Acute intentional overdose on Etizolam (15 x 0.5 mg tablets, obtained in [place]) in the context of alcohol intoxication, with a background of major depressive disorder and alcohol use disorder. History of Present Illness 34-year-old female with a history of major depressive disorder and alcohol use disorder presented after an intentional overdose on Etizolam, a thienodiazepine derivative not available in the [place]. She ingested 15 tablets (0.5 mg each) with alcohol, was found unresponsive by her mother, and brought to the ED. On arrival, she was lethargic, tachycardic, and hypoxic, requiring supplemental oxygen. She was admitted to the ICU for close monitoring, suicide precautions, and supportive care. Hospital Course Initial Assessment: Vitals:?Tachycardia (HR 120s), BP 90s/40s?90s, hypoxic (2L O2). Labs: AST 194 ? 90, ALT 297 ? 187 (improved during stay) Alcohol level 270 on admission, trended down Hypocalcemia (resolved) CBC, metabolic panel, TSH, magnesium, urinalysis unremarkable Imaging: CXR: No acute cardiopulmonary abnormality RUQ US: Fatty infiltration of the liver EKG:?Sinus tachycardia, QTC 458 Poison Control:?Notified; recommended supportive care. Etizolam peak effect at 6 hours, half-life 31 hours. ICU Management: 1:1 sitter, suicide and elopement precautions Supportive care, IV fluids, telemetry, neuro checks Banana bag, then daily folic acid and thiamine CIWA protocol initiated as alcohol level trended down Monitored for withdrawal and complications Cleared by poison control; medically stable for discharge Psychiatric Assessment: Patient admitted to intentional overdose with suicidal intent, in the context of longstanding depression and recent alcohol use. Endorsed chronic depressive symptoms, no prior suicide attempts, no history of psychosis or clarisa. Denied current suicidal ideation but described feeling indifferent about surviving. Agreed to voluntary inpatient behavioral health admission for further stabilization and treatment. Sertraline 25 mg daily initiated for depression. Assessment and Plan 1. Drug Overdose (T50.901A): Etizolam overdose, intentional, with alcohol co-ingestion. Supportive care, ICU monitoring, suicide precautions. Medically stable for psychiatric transfer. 2. Major Depressive Disorder, Recurrent, Severe, Without Psychotic Features (F33.2): Longstanding, untreated depression. Initiated sertraline 25 mg daily. Voluntary for inpatient behavioral health admission. 3. Alcohol Use Disorder (F10.90) / Substance Abuse (F19.10): Acute intoxication on admission, no withdrawal symptoms during stay. [facility] protocol available if needed. Banana bag, folic acid, thiamine. 4. Suicide Attempt (T14.91XA): Intentional overdose, first suicide attempt. Suicide and elopement precautions maintained throughout stay. Psychiatry recommends inpatient behavioral health admission. 5. Transaminitis (R74.01): AST/ALT elevated, improved during stay. Likely secondary to alcohol use. RUQ US: Fatty liver. Monitor LFTs as outpatient. 6. Hypocalcemia: Resolved during admission. Medications at Discharge Sertraline 25 mg daily (new start) Folic acid, thiamine Other home medications as appropriate Disposition transferred to inpatient psych Follow-Up Inpatient behavioral health team Outpatient primary care and psychiatry after discharge from behavioral health Time Spent with Patient Time attestation: Total time spent providing and/or coordinating discharge services: Discharge Plan Discharge Attending physician on discharge: Nyla Chaney Consulting providers: Red Anders; Colt Mckoy; Rica Michaels; Debbie Kennedy; Dann Moctezuma Discharging Clinician: Nyla Chaney Anticipated Discharge Date/Time: 10/30/24 17:19 Patient Disposition: Psychiatric Hosp Activity: as tolerated Diet: as tolerated Patient Instructions: Depression (GEN), Alcohol Intoxication (DC), Abuse of Alcohol (DC), Suicide Prevention (GEN) Patient Language: [place] Korean Follow-up/Referrals: Aaron Castellanos MD [Physician, Psychiatry] Referral Note: F/u with Psych PHYSICIAN,ILLUSTRATOR SET [Primary Care Provider, Internal Medicine] Referral Note: F/u with PCP in 3-5 days Red Anders MD [Physician, Family Practice] Referral Note: F/u with PCP in 3-5 days Discharge Orders: Discharge Order (Routine); Ordered 10/30/24 Ordered By: Nyla Chaney Discharge Medications: New sertraline 25 mg tablet 25 mg PO DAILY Qty: 30 1RF thiamine HCl (vitamin B1) 100 mg tablet 100 mg PO DAILY 30 Days Qty: 30 0RF folic acid 1 mg tablet 1 mg PO DAILY 30 Days Qty: 30 0RF Date of admission: 10/28/24 03:58 Primary Care Provider: PHYSICIAN,ILLUSTRATOR SET Admitting Provider: Amrit Neumann Attending physician on admission: Nyla Chaeny Condition: Guarded Prognosis
--- NOTE | 2024-11-06 08:55 | P.TS_ITS ---
Transfer Discharge Sum: Prov Provider Date of admission: 10/28/24 03:58 Primary care physician: BUTCHER APPRENTICE PHYSICIAN Admitting clinician: Amrit Neumann MD Consults: 10/28/24 Consult to Physician Routine Comment: Left voicemail for provider office 10/28 @ 5506 Consulting Provider: Aaron Castellanos machine scallop cutter/MD group to consult: Psychiatry Reason for consultation: Suicidal ideation and depression Has provider been notified: Yes DS: Admitting Diagnosis Discharge Date 10/30/24 Admitting Diagnosis Drug overdose DS: Discharge Diagnosis Discharge Diagnosis (1) Suicide attempt: Code(s): T14.91XA - Suicide attempt, initial encounter Status: Acute (2) Alcohol intoxication: Code(s): F10.929 - Alcohol use, unspecified with intoxication, unspecified Status: Acute Transfer Discharge Sum: Hosp Hospital Course Hospital course: Reason for Admission Acute intentional overdose on Etizolam (15 x 0.5 mg tablets, obtained in [facility]) in the context of alcohol intoxication, with a background of major depressive disorder and alcohol use disorder. History of Present Illness 34-year-old female with a history of major depressive disorder and alcohol use disorder presented after an intentional overdose on Etizolam, a thienodiazepine derivative not available in the [place]. She ingested 15 tablets (0.5 mg each) with alcohol, was found unresponsive by her mother, and brought to the ED. On arrival, she was lethargic, tachycardic, and hypoxic, requiring supplemental oxygen. She was admitted to the ICU for close monitoring, suicide precautions, and supportive care. Hospital Course Initial Assessment: * Vitals:?Tachycardia (HR 120s), BP 90s/40s?90s, hypoxic (2L O2). * Labs: * AST 194 ? 90, ALT 297 ? 187 (improved during stay) * Alcohol level 270 on admission, trended down * Hypocalcemia (resolved) * CBC, metabolic panel, TSH, magnesium, urinalysis unremarkable * Imaging: * CXR: No acute cardiopulmonary abnormality * RUQ US: Fatty infiltration of the liver * EKG:?Sinus tachycardia, QTC 458 * Poison Control:?Notified; recommended supportive care. Etizolam peak effect at 6 hours, half-life 31 hours. ICU Management: * 1:1 sitter, suicide and elopement precautions * Supportive care, IV fluids, telemetry, neuro checks * Banana bag, then daily folic acid and thiamine * CIWA protocol initiated as alcohol level trended down * Monitored for withdrawal and complications * Cleared by poison control; medically stable for discharge Psychiatric Assessment: * Patient admitted to intentional overdose with suicidal intent, in the context of longstanding depression and recent alcohol use. * Endorsed chronic depressive symptoms, no prior suicide attempts, no history of psychosis or clarisa. * Denied current suicidal ideation but described feeling indifferent about surviving. * Agreed to voluntary inpatient behavioral health admission for further stabilization and treatment. * Sertraline 25 mg daily initiated for depression. Assessment and Plan 1. Drug Overdose (T50.901A): * Etizolam overdose, intentional, with alcohol co-ingestion. * Supportive care, ICU monitoring, suicide precautions. * Medically stable for psychiatric transfer. 2. Major Depressive Disorder, Recurrent, Severe, Without Psychotic Features (F33.2): * Longstanding, untreated depression. * Initiated sertraline 25 mg daily. * Voluntary for inpatient behavioral health admission. 3. Alcohol Use Disorder (F10.90) / Substance Abuse (F19.10): * Acute intoxication on admission, no withdrawal symptoms during stay. * CIWA protocol available if needed. * Banana bag, folic acid, thiamine. 4. Suicide Attempt (T14.91XA): * Intentional overdose, first suicide attempt. * Suicide and elopement precautions maintained throughout stay. * Psychiatry recommends inpatient behavioral health admission. 5. Transaminitis (R74.01): * AST/ALT elevated, improved during stay. * Likely secondary to alcohol use. * RUQ US: Fatty liver. * Monitor LFTs as outpatient. 6. Hypocalcemia: * Resolved during admission. Medications at Discharge * Sertraline 25 mg daily (new start) * Folic acid, thiamine * Other home medications as appropriate Disposition transferred to inpatient psych Follow-Up * Inpatient behavioral health team * Outpatient primary care and psychiatry after discharge from behavioral health Patient Condition: Improved Time Spent with Patient Time attestation: Total time spent providing and/or coordinating transfer services:
--- NOTE | 2024-11-06 08:55 | PM.TDS ---
Transfer Discharge Sum: Prov Provider Date of admission: 10/28/24 03:58 Primary care physician: [facility] Admitting clinician: Amrit Neumann MD Consults: 10/28/24 Consult to Physician Routine Comment: Left voicemail for provider office 10/28 @ 3724 Consulting Provider: Aaron Castellanos naprapath/MD group to consult: Psychiatry Reason for consultation: Suicidal ideation and depression Has provider been notified: Yes DS: Admitting Diagnosis Discharge Date 10/30/24 Admitting Diagnosis Drug overdose DS: Discharge Diagnosis Discharge Diagnosis (1) Suicide attempt: Code(s): T14.91XA - Suicide attempt, initial encounter Status: Acute (2) Alcohol intoxication: Code(s): F10.929 - Alcohol use, unspecified with intoxication, unspecified Status: Acute Transfer Discharge Sum: Hosp Hospital Course Hospital course: Reason for Admission Acute intentional overdose on Etizolam (15 x 0.5 mg tablets, obtained in [place]) in the context of alcohol intoxication, with a background of major depressive disorder and alcohol use disorder. History of Present Illness 34-year-old female with a history of major depressive disorder and alcohol use disorder presented after an intentional overdose on Etizolam, a thienodiazepine derivative not available in the [place]. She ingested 15 tablets (0.5 mg each) with alcohol, was found unresponsive by her mother, and brought to the ED. On arrival, she was lethargic, tachycardic, and hypoxic, requiring supplemental oxygen. She was admitted to the ICU for close monitoring, suicide precautions, and supportive care. Hospital Course Initial Assessment: Vitals:?Tachycardia (HR 120s), BP 90s/40s?90s, hypoxic (2L O2). Labs: AST 194 ? 90, ALT 297 ? 187 (improved during stay) Alcohol level 270 on admission, trended down Hypocalcemia (resolved) CBC, metabolic panel, TSH, magnesium, urinalysis unremarkable Imaging: CXR: No acute cardiopulmonary abnormality RUQ US: Fatty infiltration of the liver EKG:?Sinus tachycardia, QTC 458 Poison Control:?Notified; recommended supportive care. Etizolam peak effect at 6 hours, half-life 31 hours. ICU Management: 1:1 sitter, suicide and elopement precautions Supportive care, IV fluids, telemetry, neuro checks Banana bag, then daily folic acid and thiamine CIWA protocol initiated as alcohol level trended down Monitored for withdrawal and complications Cleared by poison control; medically stable for discharge Psychiatric Assessment: Patient admitted to intentional overdose with suicidal intent, in the context of longstanding depression and recent alcohol use. Endorsed chronic depressive symptoms, no prior suicide attempts, no history of psychosis or clarisa. Denied current suicidal ideation but described feeling indifferent about surviving. Agreed to voluntary inpatient behavioral health admission for further stabilization and treatment. Sertraline 25 mg daily initiated for depression. Assessment and Plan 1. Drug Overdose (T50.901A): Etizolam overdose, intentional, with alcohol co-ingestion. Supportive care, ICU monitoring, suicide precautions. Medically stable for psychiatric transfer. 2. Major Depressive Disorder, Recurrent, Severe, Without Psychotic Features (F33.2): Longstanding, untreated depression. Initiated sertraline 25 mg daily. Voluntary for inpatient behavioral health admission. 3. Alcohol Use Disorder (F10.90) / Substance Abuse (F19.10): Acute intoxication on admission, no withdrawal symptoms during stay. CIWA protocol available if needed. Banana bag, folic acid, thiamine. 4. Suicide Attempt (T14.91XA): Intentional overdose, first suicide attempt. Suicide and elopement precautions maintained throughout stay. Psychiatry recommends inpatient behavioral health admission. 5. Transaminitis (R74.01): AST/ALT elevated, improved during stay. Likely secondary to alcohol use. RUQ US: Fatty liver. Monitor LFTs as outpatient. 6. Hypocalcemia: Resolved during admission. Medications at Discharge Sertraline 25 mg daily (new start) Folic acid, thiamine Other home medications as appropriate Disposition transferred to inpatient psych Follow-Up Inpatient behavioral health team Outpatient primary care and psychiatry after discharge from behavioral health Patient Condition: Improved Time Spent with Patient Time attestation: Total time spent providing and/or coordinating transfer services:
== END 2024-10-30 09:56 | DRG 918 ==
LOC: ANHED 03:47 → ANHICU 07:27
PROVIDERS: Nurse Practitioner Adult Health; Admitting Provider General Practice; Emergency Provider Emergency Medicine; Visit Provider Internal Medicine
DX: T42.4X2A Poisoning by benzodiazepines, intentional self-harm, initial encounter (principal); F33.2 Major depressive disorder, recurrent severe without psychotic features; F10.920 Alcohol use, unspecified with intoxication, uncomplicated; Y90.8 Blood alcohol level of 240 mg/100 ml or more; F19.10 Other psychoactive substance abuse, uncomplicated; R40.0 Somnolence; F41.9 Anxiety disorder, unspecified; R74.01 Elevation of levels of liver transaminase levels; E83.51 Hypocalcemia; Z20.822 Contact with and (suspected) exposure to COVID-19; Z87.891 Personal history of nicotine dependence
CPT/HCPCS: 36415; 71045; 76705; 80053; 80143; 80179; 80307; 81003; 81025; 82077; 82550; 83690; 83735; 84443; 85025; 85610; 85730; 87635; 93005; 96360; 99285; A9270; J1650; J3411; J3475; J7030; J7121